=== PATIENT | male | born 1995 | race Caucasian/White ===

== ENCOUNTER 2017-02-23 00:25 | Emergency (ER) | payer OTHER ==
[2017-02-23] MEDS ORDERED: KETOROLAC 30 MG/ML VIAL (J1885) As Ordered ONE (02:31)
[2017-02-23 04:01] LABS: ALBUMIN 3.8 GM/DL (3.2-5.2); ALBUMIN/GLOBULIN RATIO 1.36 (1.00-1.93); ALKALINE PHOSPHATASE 63 U/L (45-117); ALT/SGPT 32 U/L (12-78); ANION GAP 7 MEQ/L (8-16); AST/SGOT 45 U/L (15-37); BASO % 0.2 % (0.0-1.0); BILIRUBIN,DIRECT 0.2 MG/DL (0.0-0.2); BILIRUBIN,TOTAL 0.7 MG/DL (0.2-1.0); BLOOD UREA NITROGEN 15 MG/DL (7-18); CALCIUM LEVEL 8.8 MG/DL (8.5-10.1); CARBON DIOXIDE LEVEL 28 MEQ/L (21-32); CHLORIDE LEVEL 106 MEQ/L (98-107); CREATININE FOR GFR 0.89 MG/DL (0.70-1.30); EOS # 0.2 K/mm3 (0.0-0.50); EOS % 3.2 % (0.0-3.0); GLOMERULAR FILTRATION RATE > 60.0 (>60); GLUCOSE, FASTING 110 MG/DL (70-105); LARGE UNSTAINED CELL # 0.1 K/mm3 (0.0-0.4); LARGE UNSTAINED CELL % 1.3 % (0.0-4.0); LYMPH % 14.2 % (24.0-44.0); MEAN CORPUSCULAR HEMOGLOBIN 29.2 pg (27.0-33.0); MEAN CORPUSCULAR HGB CONC 33.4 g/dl (32.0-36.5); MEAN CORPUSCULAR VOLUME 87.6 fl (80.0-96.0); MONO # 0.6 K/mm3 (0.0-0.8); MONO % 9.6 % (0.0-5.0); NEUTROPHILS # 4.7 K/mm3 (1.8-7.7); NEUTROPHILS % 71.5 % (36.0-66.0); PLATELET COUNT, AUTOMATED 208 k/mm3 (150-450); POTASSIUM SERUM 3.7 MEQ/L (3.5-5.1); RED CELL DISTRIBUTION WIDTH 12.5 % (11.5-14.5); SODIUM LEVEL 141 MEQ/L (136-145); TOTAL PROTEIN 6.6 GM/DL (6.4-8.2); WHITE BLOOD COUNT 6.6 K/mm3 (4.0-10.0)
[2017-02-23] MEDS ORDERED: LOPERAMIDE 2 MG CAP As Ordered ONE (04:52)
--- NOTE | 2017-02-23 11:46 | ED PDOC ---
Post-Departure Follow-Up This record was completely or partially completed on paper due to EMR downtime. Please see scanned paper chart. Yoly Murguia MD, Sarah MD Feb 23, 2017 11:46
== END 2017-02-23 04:55 | disposition home or self-care (01) ==
LOC: M ED 01:08
DX: R19.7 Diarrhea, unspecified (principal)
CPT/HCPCS: 36415; 80048; 80076; 85025; 87507; 99281; J1885

== ENCOUNTER 2017-09-27 09:35 | Emergency (ER) | payer OTHER ==
[~2017-09-27] VITALS: Ht 177.8 cm; Wt 84.1 kg
[2017-09-27 09:36] VITALS: BP 132/91
[2017-09-27] MEDS ORDERED: AFRI0.056 (09:46)
[2017-09-27] MEDS ORDERED: EXCETAB80 PO (09:46)
[2017-09-27] MEDS ORDERED: AUGM875T28 PO (10:10)
[2017-09-27] MEDS ORDERED: FLON1SPR (10:10)
== END 2017-09-27 10:14 | disposition home or self-care (01) ==
LOC: M ED 09:35
DX: J01.00 Acute maxillary sinusitis, unspecified (principal)

== ENCOUNTER → 2018-02-02 | Outpatient (REF) | payer OTHER ==
[2018-02-02 17:49] LABS: PLATELET COUNT, AUTOMATED 237 10^3/uL (150-450)
[2018-02-02 18:09] LABS: INR 1.03; PROTHROMBIN TIME 13.6 SECONDS (12.4-14.5)
[2018-02-02 18:10] LABS: PARTIAL THROMBOPLASTIN TIME 29.5 SECONDS (26.8-37.9)
== END ==
LOC: M LABDRAW1 15:14
DX: M47.896 Other spondylosis, lumbar region (principal)